=== PATIENT | male | born 1940 | race African-American/Black ===

== ENCOUNTER 2018-10-01 16:13 | Inpatient (IN) | payer OTHER ==
--- NOTE | 2018-10-01 16:59 | PDOC ---
Attending Attestation - [facility] HPI: 10/01/18 18:00 The patient is a 76 year old male, with a significant past medical history of stroke (1993 and 2004) with residual LLE weakness, colon CA with colostomy, HTN , HLD, diabetes, who presents to the emergency department s/p near syncope about an hour prior to arrival. 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 He denies any chest pain or SOB at the time, but reportedly started to lose consciousness and his coworkers assisted him to a seat. He denies falling. He denies head trauma. He states he is feeling better now, however, reports a mild heaviness to his right lower extremity which he notices only with ambulation. He denies any numbness, tingling or weakness. He denies any pain to the extremities. The patient denies chest pain, shortness of breath, headache and dizziness. The patient denies fever, chills, nausea, vomit, diarrhea and constipation. The patient denies dysuria, frequency, urgency and hematuria. Allergies: NKDA Documentation prepared by Pina Strickland, acting as nuclear medicine medical director for Chel Gautam DO - Physicial Exam PE: 10/01/18 18:03 Constitutional: Awake, alert, oriented. No acute distress. Head: Normocephalic. Atraumatic Eyes: PERRL. EOMI. Conjunctivae are not pale. ENT: Mucous membranes are moist and intact. Posterior pharynx without exudates or erythema. Uvula midline. Neck: Supple. Full ROM. No lymphadenopathy. Cardiovascular: Regular rate. Regular rhythm. S1, S2 regular. Distal pulses are 2+ and symmetric. Pulmonary/Chest: No evidence of respiratory distress. Clear to auscultation bilaterally No wheezing, rales or rhonchi. Abdominal: Soft and non-distended. There is no tenderness. No rebound, guarding or rigidity. No organomegaly. No palpable masses. Good bowel sounds. Back: No CVA tenderness. Musculoskeletal: No edema. No cyanosis. No clubbing. Full range of motion in all extremities. Nocalf tenderness. Radial/pedal pulses are intact and 2+ bilaterally Skin: Skin is warm and dry. No petechiae. No purpura. Neurological: Antalgic gait at baseline. Alert and oriented to person, place, and time. Cranial nerves II-XII are grossly intact. Normal speech. Strength is grossly symmetric with exception of slight decreased strength to left lower extremity which is residual from a prior CVA. No sensory deficits. Psychiatric: Good eye contact. Normal interaction, affect and behavior. <Pina Strickland - Last Filed: 10/01/18 18:00> - Resident Resident Name: Viktoriya Cortés - ED Attending Attestation I have performed the following: I have examined & evaluated the patient, The case was reviewed & discussed with the resident, I agree w/resident's findings & plan, Exceptions are as noted - Medical Decision Making 10/01/18 16:59 I, Dr. Chel Gautam, DO, attest that this document has been prepared under my direction and personally reviewed by me in its entirety. I further attest, that it accurately reflects all work, treatment, procedures and medical decision -making performed by me. 10/01/18 18:23 a/p: 77yo male with an episode of feeling lightheaded earlier and near syncope -currently asymptomatic -c/o R leg feeling heavy when ambulating, but baseline gait and muscle strength 5/5 RLE -4/5 LLE which is baseline from prior cva -no cp/sob -will send labs, head ct, ekg, cxr 10/01/18 20:04 pt with chronic changes to the brain trop negative near syncope and R leg heaviness no new focal neuro findings will place in obs for MRI brain and neuro eval no TPA given NIHSS of 1 (residual L leg weakness from prior cva) pt willing to stay for near syncope and R leg heaviness 10/01/18 20:15 resident discussed the case with Dr. Biswas who accepts pt to service <Chel Gautam - Last Filed: 10/01/18 20:15> Heart Score/ECG Review - ECG Intrepretation Comment:: 10/01/18 18:25 sinus at 63, q waves inferior leads that are age indeterminate, q waves septally that are age indeterminate, t wave flattening inferior and lateral leads <Chel Gautam - Last Filed: 10/01/18 20:15>
--- NOTE | 2018-10-01 17:14 | PDOC ---
History of Present Illness - General Chief Complaint: Lightheaded Stated Complaint: DIZZY Time Seen by Provider: 10/01/18 16:35 History Source: Patient Exam Limitations: No Limitations - History of Present Illness Initial Comments: 10/01/18 17:02 77 year old man with history of stroke (1993, 2004) w/ L leg deficit, colon CA w / colostomy (2002), HTN, HLD, DM who presents with episode of near syncope approx 1 hour before presentation with episode of near syncope that lasted for approx 5min. 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 He admits to diaphoresis at the time but denies chest pain, shortness of breath or nausea. The patient was slow to respond at this time and "woozy" but was still responsive. He become completely alert when EMS arrived and he denies any confusion. The witnesses deny any shaking, eye rolling back or signs of seizure activity. The patient reports that he ate and drank normally today. He tried to walk after EMS arrived but still felt dizzy. He complains of some R leg heaviness in the ED. PMHX: as in HPI PSHX: as in HPI Meds: meclizine, loratadine, lisinopril, naproxen, lancet Allergies: NKDA tPA Exclusion Checklist 0-3hr - Time Elapsed Date last known well: 10/01/18 Time last known well: 16:00 Elaspsed time: 9 Day(s) and 6 Hour(s) and 24 Minutes - Thrombolytic Therapy Candidate Is the patient eligible for Thrombolytic Therapy?: No - Exclusion Criteria 0-3hr SBP greater than 185 or DBP greater than 110mmHg despite tx: No Recent IC/spinal surgery,head trauma or stroke w/in last 3mo: No Hx of previous IC hemorrhage, IC neoplasm, AVM or aneurysm: Yes Active internal bleeding: No Blding diathesis(low plt ct, inc PTT,INR>1.7 or use of NOAC): No Symptoms suggest subarachnoid hemorrhage: No CT demonstrates multilobar infarct(>1/3 cerebral hemiphere): No Arterial puncture at noncompressible site in previous 7 days: No Blood glucose concentration less than 50mg/dL (2.7mmol/L): No - Relative Exclusion Criteria 0-3h Life expectancy <1yr/severe co-morbid illness/PROFESSOR OF SOCIAL WORK on admit: No : No Patient/family refused: No Rapid improvement: Yes Stroke severity too mild: Yes Recent acute AK (w/in previous 3 months): No Seizure at onset with postictal residual neuro impairments: No Major surgery or serious trauma w/in previous 14 days: No Recent GI or hemorrhage (w/in previous 21 days): No - Ineligibility reason(s) Reasons No tPA given: See reason(s) noted above NIH Stroke Scale - Last Known Well Date/Time & Onset Date Last Known Well: 10/01/18 Time Last Known Well: 16:00 - Initial Evaluation Level of consciousness: Alert Ask patient the month and their age: Answers both correctly Ask patient to open & close eyes; make fist and let go: Obeys both correctly Best gaze (horizontal eye movement): Normal Visual field testing: No visual field loss Facial paresis (Show teeth/raise eyebrows/close eyes tight): Normal symmetrical movement Motor Function: Left Arm: Normal Motor Function: Right Arm: Normal (extends arm 90 (or 45) degrees for 10 seconds without drift Motor Function: Left Leg: Normal (extends leg 30 degrees for 5 seconds without drift) Motor Function: Right Leg: Normal (extends leg 30 degrees for 5 seconds without drift) Limb Ataxia: No ataxia Sensory(Use pinprick test arms,legs,trunk,face/side to side): Normal Best language (Describe picture, name items, read sentences): No Aphasia Dysarthria (read several words): Normal articulation Extinction and Inattention: No abnormality - Total Score NIH Stroke Scale Score: 0 Past History - Past Medical History Allergies/Adverse Reactions: Allergies Allergy/AdvReac Type Severity Reaction Status Date / Time No Known Allergies Allergy Verified 10/01/18 16:32 Home Medications: Ambulatory Orders Aspirin [ASA -] 81 mg PO DAILY 10/01/18 Lisinopril 20 mg PO DAILY 10/01/18 Loratadine 10 mg PO DAILY 10/01/18 Meclizine HCl [Travel Sickness] 25 mg PO DAILY 10/01/18 Naproxen [Naprosyn -] 250 mg PO DAILY 10/01/18 Aspirin [ASA -] 81 mg PO DAILY #30 tab.chew 10/03/18 Atorvastatin Ca [Lipitor] 40 mg PO HS #30 tablet 10/03/18 CVA: Yes COPD: No HTN: Yes - Suicide/Smoking/Psychosocial Hx Smoking History: Never smoked Review of Systems - Review of Systems Able to Perform ROS?: Yes Is the patient limited Nigerien proficient: No Constitutional: No: Chills, Diaphoresis, Fever HEENTM: No: Blurred Vision, Tinnitus Respiratory: No: Cough, Orthopnea, Shortness of Breath Cardiac (ROS): Yes: See HPI, Lightheadedness. No: Chest Pain, Palpitations ABD/GI: No: Constipated, Diarrhea, Nausea, Vomiting : No: Burning, Dysuria, Hematuria Musculoskeletal: No: Muscle Pain Neurological: No: Headache, Numbness, Tingling *Physical Exam - Vital Signs Last Vital Signs Temp Pulse Resp BP Pulse Ox 97.4 F L 18 L 65 H 137/68 99 10/01/18 16:30 10/01/18 16:30 10/01/18 16:30 10/01/18 16:30 10/01/18 16:30 - Physical Exam Comments: 10/01/18 17:25 GENERAL: Awake, alert, and fully oriented, in no acute distress HEAD: No signs of trauma, normocephalic, atraumatic EYES: PERRLA, EOMI, sclera anicteric, conjunctiva clear ENT: oropharynx clear without exudates. Moist mucosa NECK: Normal ROM, supple LUNGS: No distress, speaks full sentences, slightly decreased breath sounds in all lobes, clear to auscultation bilaterally HEART: Regular rate and rhythm, normal S1 and S2, no murmurs, rubs or gallops, peripheral pulses normal and equal bilaterally. ABDOMEN: Soft, nontender, normoactive bowel sounds, + L sided colostomy bag, No guarding, no rebound. No masses EXTREMITIES : Normal inspection, Normal range of motion, no edema. No clubbing or cyanosis. NEUROLOGICAL: Cranial nerves II through XII grossly intact. Normal speech, baseline gait w/ L leg weakness, no focal sensorimotor deficits SKIN: Warm, Dry, normal turgor, no rashes or lesions noted Moderate Sedation - Procedure Monitoring Vital Signs: Procedure Monitoring Vital Signs Temperature 97.4 F L 10/01/18 16:30 Pulse Rate 18 L 10/01/18 16:30 Respiratory Rate 65 H 10/01/18 16:30 Blood Pressure 137/68 10/01/18 16:30 O2 Sat by Pulse Oximetry (%) 99 10/01/18 16:30 ED Treatment Course - LABORATORY CBC & Chemistry Diagram: 10/03/18 08:00 10/03/18 08:00 - RADIOLOGY Radiology Studies Ordered: Category Date Time Status CXRPORT [CHEST X-RAY PORTABLE*] [RAD] Stat Radiology 10/01/18 16:48 Ordered Medical Decision Making - Medical Decision Making 10/01/18 17:21 77 year old man with history of stroke (1993, 2004) w/ L leg deficit, colon CA w / colostomy (2002), HTN, HLD, DM who presents with episode of near syncope approx 1 hour before presentation with episode of near syncope that lasted for approx 5min. 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 He admits to diaphoresis at the time but denies chest pain, shortness of breath or nausea. The patient was slow to respond at this time and "woozy" but was still responsive. He become completely alert when EMS arrived and he denies any confusion. The witnesses deny any shaking, eye rolling back or signs of seizure activity. The patient reports that he ate and drank normally today. He tried to walk after EMS arrived but still felt dizzy. ED Course: Consider ACS vs arrythmia vs vasovagal syncope vs hypoglycemia vs infectious When ambulating patient complained of R leg heaviness, new from baseline, however on exam with equal strength bilaterally. cbc, cmp, ekg, trop, cxr, bgm, ua, ucx EKG: normal sinus rhythm HR 10/01/18 18:42 cbc, cmp, ua unremarkable. pending head CT and CXR 10/01/18 20:17 No acute findings on head CT and CXR Admit for MRI, repeat trop, observation and neuro and cards evaluation. Patient admitted for further workup and evaluation *DC/Admit/Observation/Transfer Diagnosis at time of Disposition: Near syncope, Right leg weakness - Discharge Dispostion Disposition: HOME Condition at time of disposition: Good Decision to Admit order: Yes - Prescriptions - Referrals - Patient Instructions - Post Discharge Activity
[2018-10-01 17:27] LABS: BASO % 0.8 % (0-2.0); EOS % 1.9 % (0-4.5); HEMOGLOBIN 13.1 GM/dL (11.7-16.9); LYMPH % 21.6 % (8-40); MCH 28.9 pg (25.7-33.7); MCHC 33.7 g/dl (32.0-35.9); MEAN CELL VOLUME 85.8 fl (80-96); MONO % 9.4 % (3.8-10.2); NEUT % 66.3 % (42.8-82.8); PLATELET COUNT 253 K/MM3 (134-434); RBC 4.54 M/mm3 (4.00-5.60); WHITE BLOOD COUNT 6.4 K/mm3 (4.0-10.0)
[2018-10-01 17:36] LABS: URINE APPEARANCE CLEAR; URINE BILIRUBIN NEGATIVE (<2.0 mg/dL); URINE COLOR YELLOW; URINE GLUCOSE (UA) NEGATIVE (NEGATIVE); URINE KETONE NEGATIVE (NEGATIVE); URINE LEUK ESTERASE NEGATIVE (NEGATIVE); URINE NITRITE NEGATIVE (NEGATIVE); URINE PROTEIN NEGATIVE (NEGATIVE)
[2018-10-01 18:07] LABS: ALBUMIN 4.1 g/dl (3.4-5.0); ALK PHOS 84 U/L (45-117); ANION GAP 9 MMOL/L (8-16); BILIRUBIN,TOTAL 0.2 mg/dL (0.2-1); BLOOD UREA NITROGEN 23 mg/dL (7-18); CALCIUM 8.9 mg/dL (8.5-10.1); CHLORIDE 106 mmol/L (98-107); CO2 24 mmol/L (21-32); CREATININE 1.3 mg/dL (0.55-1.3); GLUCOSE,RANDOM 127 mg/dL (74-106); POTASSIUM 4.7 mmol/L (3.5-5.1); SGOT/AST 21 U/L (15-37); SGPT/ALT 32 U/L (13-61); SODIUM 139 mmol/L (136-145)
[2018-10-02 01:58] VITALS: BMI 24.5
--- NOTE | 2018-10-02 09:17 | EKG ---
Test Reason : Blood Pressure : / mmHG Vent. Rate : 063 BPM Atrial Rate : 063 BPM P-R Int : 180 ms QRS Dur : 096 ms QT Int : 404 ms P-R-T Axes : 040 -24 -03 degrees QTc Int : 413 ms POOR DATA QUALITY, INTERPRETATION MAY BE ADVERSELY AFFECTED NORMAL SINUS RHYTHM NORMAL ECG WHEN COMPARED WITH ECG OF 01-DEC-2002 07:53, CRITERIA FOR INFERIOR INFARCT ARE NO LONGER PRESENT NONSPECIFIC T WAVE ABNORMALITY NOW EVIDENT IN ANTERIOR LEADS Confirmed by KASSANDRA DO, JORGE ([id number]) on 10/02/2018 9:16:36 AM Referred By: Confirmed By:JORGE CANNON MD
--- NOTE | 2018-10-02 09:37 | CON.NEURO ---
Consult - Alcohol/Substance Use Hx Alcohol Use: No - Smoking History Smoking history: Never smoked Have you smoked in the past 12 months: No If you are a former smoker, when did you quit?: 1985 Home Medications - Allergies Allergies/Adverse Reactions: Allergies Allergy/AdvReac Type Severity Reaction Status Date / Time No Known Allergies Allergy Verified 10/01/18 16:32 - Home Medications Home Medications: Ambulatory Orders Aspirin [ASA -] 81 mg PO DAILY 10/01/18 Lisinopril 20 mg PO DAILY 10/01/18 Loratadine 10 mg PO DAILY 10/01/18 Meclizine HCl [Travel Sickness] 25 mg PO DAILY 10/01/18 Naproxen [Naprosyn -] 250 mg PO DAILY 10/01/18 Physical Exam-Neuro Vital Signs: Vital Signs Temperature 98.2 F 10/02/18 06:00 Pulse Rate 62 10/02/18 06:00 Respiratory Rate 16 10/02/18 06:00 Blood Pressure 141/70 10/02/18 06:00 O2 Sat by Pulse Oximetry (%) 99 10/01/18 23:21 Labs: CBC, BMP 10/01/18 17:19 10/01/18 17:19 Assessment/Plan cc Syncopal episode HPI 77 year old male hsitory of stroke ( 1993 and 2004) with residual left sied wekaenss. He also have history of HTN,HLD,DM, Colostomy. 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 He almost passed out but never lost [place]. He denies any seizure like activity. He denies any new focal eurological symptoms. His nih score was 0 at admission as per records. Past Medical History DM,HTN, COLON CANCER, HLD Allergies/Adverse Reactions: Allergies Allergy/AdvReac Type Severity Reaction Status Date / Time No Known Allergies Allergy Verified 10/01/18 16:32 Home Medications: Ambulatory Orders Aspirin [ASA -] 81 mg PO DAILY 10/01/18 Lisinopril 20 mg PO DAILY 10/01/18 Loratadine 10 mg PO DAILY 10/01/18 Meclizine HCl [Travel Sickness] 25 mg PO DAILY 10/01/18 Naproxen [Naprosyn -] 250 mg PO DAILY 10/01/18 FH,ROS sh reviewed in chart NEUROLOGICAL EXAMIANTION Alert oriented x 3 mild left face asymmetry, eomi, pupils reactive there is no pronator drift and strength is normal in upper extremity there is mild left leg weakness ct hed unremarkable, old encephalomalacia identified Assessemnt 77 year old male history of stroke, dm, htn, hld and had let leg weakenss. came with presyncope, no LOC. There is no seizure like activity or suspician of stroke Plan- continue aspirin and statin - may follow up mri , though low suspician for stroke - may obtain carotid ultrasound for old stroke - SYNCOPE/Presyncope work up as per primary Thanking you so much Nathan Almonte MD
[2018-10-02] MEDS: LISINOPRIL 20 MG TABLET (FP) PO SCH (14:21)
[2018-10-02] MEDS: MECLIZINE HCL 25 MG TABLET (FP) PO SCH (14:21)
[2018-10-02] MEDS: ASPIRIN 81 MG CHEWABLE TABLETS PO SCH (14:21)
[2018-10-02] MEDS: HEPARIN NA (PORCINE) 5,000 UNITS/ML 1ML VIAL SQ SCH ×2 (14:22→21:06)
--- NOTE | 2018-10-02 16:18 | HP ---
Admitting History and Physical - Admission History of Present Illness: Pt is a 77 year old man with PMG significant for CVA w/ L leg deficit, colon CA w/ colostomy (2002), HTN, HLD, DM who presents with episode of near syncope approx 1 hour before presentation with episode of near syncope that lasted for approx 5min. 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 He admits to diaphoresis at the time but denies chest pain, shortness of breath or nausea. The patient was slow to respond at this time and "woozy" but was still responsive. He become completely alert when EMS arrived and he denies any confusion. The witnesses deny any shaking, eye rolling back or signs of seizure activity. The patient reports that he ate and drank normally today. He tried to walk after EMS arrived but still felt dizzy. He complains of some R leg heaviness in the ED. Limitations to Obtaining History: Other (syncope) - Past Medical History ACADEMIC SUPPORT COORDINATOR: Yes: CVA Cardiovascular: Yes: HTN, Hyperlipdemia Endocrine: Yes: Diabetes Mellitus - Smoking History Smoking history: Never smoked Have you smoked in the past 12 months: No If you are a former smoker, when did you quit?: 1985 - Alcohol/Substance Use Hx Alcohol Use: No Home Medications - Allergies Allergies/Adverse Reactions: Allergies Allergy/AdvReac Type Severity Reaction Status Date / Time No Known Allergies Allergy Verified 10/01/18 16:32 - Home Medications Home Medications: Ambulatory Orders Aspirin [ASA -] 81 mg PO DAILY 10/01/18 Lisinopril 20 mg PO DAILY 10/01/18 Loratadine 10 mg PO DAILY 10/01/18 Meclizine HCl [Travel Sickness] 25 mg PO DAILY 10/01/18 Naproxen [Naprosyn -] 250 mg PO DAILY 10/01/18 Aspirin [ASA -] 81 mg PO DAILY #30 tab.chew 10/03/18 Atorvastatin Ca [Lipitor] 40 mg PO HS #30 tablet 10/03/18 Family Disease History - Family Disease History Family History: Unremarkable Review of Systems - Review of Systems Constitutional: reports: No Symptoms Eyes: reports: No Symptoms HENT: reports: No Symptoms Neck: reports: No Symptoms Cardiovascular: reports: Shortness of Breath Respiratory: reports: No Symptoms Gastrointestinal: reports: No Symptoms Genitourinary: reports: No Symptoms Physical Examination Vital Signs: Vital Signs Temperature 98.1 F 10/02/18 15:28 Pulse Rate 73 10/02/18 15:28 Respiratory Rate 18 10/02/18 15:28 Blood Pressure 130/67 10/02/18 15:28 O2 Sat by Pulse Oximetry (%) 99 10/01/18 23:21 Constitutional: Yes: No Distress Eyes: Yes: WNL HENT: Yes: WNL Neck: Yes: WNL, Supple Cardiovascular: Yes: WNL, Regular Rate and Rhythm Respiratory: Yes: WNL, Regular, CTA Bilaterally Gastrointestinal: Yes: WNL, Normal Bowel Sounds, Soft Musculoskeletal: Yes: WNL Extremities: Yes: WNL Edema: No Neurological: Yes: WNL, Alert, Oriented ...Motor Strength: WNL Labs: CBC, BMP 10/01/18 17:19 10/01/18 17:19 Problem List - Problems (1) Near syncope Assessment/Plan: Serial cpk/troponin Check carotid doppler/echo Cardio/neuro consult Check MRI brain Code(s): R55 - SYNCOPE AND COLLAPSE (2) Hypertension Assessment/Plan: BP stable Cont to monitor Code(s): I10 - ESSENTIAL (PRIMARY) HYPERTENSION Qualifiers: Hypertension type: essential hypertension Qualified Code(s): I10 - Essential (primary) hypertension (3) Diabetes Code(s): E11.9 - TYPE 2 DIABETES MELLITUS WITHOUT COMPLICATIONS (4) H/O: stroke with residual effects Code(s): I69.30 - UNSPECIFIED SEQUELAE OF CEREBRAL INFARCTION
--- NOTE | 2018-10-02 17:09 | CON.CARD ---
Consult Consult Specialty:: Cardiology for Dr. Rae Referred by:: Dr. 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 He become completely alert when EMS arrived and he denies any confusion. The witnesses deny any shaking, eye rolling back or signs of seizure activity. The patient reports that he ate and drank normally today. He tried to walk after EMS arrived but still felt dizzy. PMHX: as in HPI PSHX: as in HPI Meds: meclizine, loratadine, lisinopril, naproxen, lancet Allergies: NKDA - History Source History Provided By: Patient Limitations to Obtaining History: No Limitations - Alcohol/Substance Use Hx Alcohol Use: No - Smoking History Smoking history: Never smoked Have you smoked in the past 12 months: No If you are a former smoker, when did you quit?: 1985 Home Medications - Allergies Allergies/Adverse Reactions: Allergies Allergy/AdvReac Type Severity Reaction Status Date / Time No Known Allergies Allergy Verified 10/01/18 16:32 - Home Medications Home Medications: Ambulatory Orders Aspirin [ASA -] 81 mg PO DAILY 10/01/18 Lisinopril 20 mg PO DAILY 10/01/18 Loratadine 10 mg PO DAILY 10/01/18 Meclizine HCl [Travel Sickness] 25 mg PO DAILY 10/01/18 Naproxen [Naprosyn -] 250 mg PO DAILY 10/01/18 Review of Systems - Review of Systems Neurological: reports: Dizziness, Pre-Existing Deficit Vital Signs: Vital Signs Temperature 98.1 F 10/02/18 15:28 Pulse Rate 73 10/02/18 15:28 Respiratory Rate 18 10/02/18 15:28 Blood Pressure 130/67 10/02/18 15:28 O2 Sat by Pulse Oximetry (%) 99 10/01/18 23:21 Constitutional: Yes: No Distress, Calm Neck: Yes: Supple Respiratory: Yes: Regular, CTA Bilaterally Gastrointestinal: Yes: Normal Bowel Sounds, Soft Cardiovascular: Yes: Regular Rate and Rhythm JVD: No Carotid Bruit: No Heart Sounds: Yes: S1, S2 Edema: No - Other Data Labs, Other Data: CBC, BMP 10/01/18 17:19 10/01/18 17:19 Troponin, BNP 10/01/18 10/01/18 10/02/18 17:19 20:22 11:35 Troponin I < 0.02 < 0.02 < 0.02 Troponin, BNP 10/01/18 10/01/18 10/02/18 17:19 20:22 11:35 Troponin I < 0.02 < 0.02 < 0.02 NSR @ 63 Imaging - Results Chest X-ray: Report Reviewed (NAD) Problem List - Problems (1) H/O: stroke with residual effects Code(s): I69.30 - UNSPECIFIED SEQUELAE OF CEREBRAL INFARCTION (2) Hypertension Code(s): I10 - ESSENTIAL (PRIMARY) HYPERTENSION Qualifiers: Hypertension type: essential hypertension Qualified Code(s): I10 - Essential (primary) hypertension (3) Near syncope Code(s): R55 - SYNCOPE AND COLLAPSE Assessment/Plan ct hed unremarkable, old encephalomalacia identified 1. Vasovagal near syncope with typical prodromal symptoms 2. Old stroke with left leg weakenss 3. Hypertension 4. Type 2 DM P:1 Continue ASA 81 qd, lisinopril 20 qd, statin 2. Addressed abortive maneuvers once prodromal sxs experienced 3. F/u brain MRI and carotid ultrasound results 4. Thank you for consultative opportunity
--- NOTE | 2018-10-02 17:37 | ECHO ---
Name: ARTUR FELIZ Exam:Adult Echocardiogram Study Date: 10/02/2018 02:56 PM Age: 77 yrs Reason For Study: CVA Height: 70 in Weight: 171 lb BSA: 2.0 m2 MMode/2D Measurements & Calculations IVSd: 0.94 cm Ao root diam: 3.3 cm LVIDd: 4.3 cm LA dimension: 2.8 cm LVIDs: 2.7 cm LVPWd: 0.70 cm EDV(Teich): 81.6 ml TAPSE: 2.4 cm ESV(Teich): 27.4 ml Doppler Measurements & Calculations MV E max ketan: 51.8 cm/sec Ao V2 max: 131.7 cm/sec MV A max ketan: 89.8 cm/sec Ao max P.9 mmHg MV E/A: 0.58 Ao V2 mean: 99.2 cm/sec MV dec time: 0.29 sec Ao mean P.5 mmHg Ao V2 VTI: 25.5 cm LV V1 max P.5 mmHg TR max ketan: 201.5 cm/sec LV V1 mean P.2 mmHg TR max P.5 mmHg LV V1 max: 106.6 cm/sec LV V1 mean: 68.2 cm/sec LV V1 VTI: 18.2 cm Med Peak E' Ketan: 7.7 cm/sec Med E/e': 6.7 Lat Peak E' Ketan: 7.5 cm/sec Lat E/e': 6.9 Left Ventricle The left ventricle is normal in size. The left ventricular ejection fraction is normal. Ejection Frac tion = 60-65%. The transmitral spectral Doppler flow pattern is suggestive of impaired LV relaxation. The le ft ventricular wall motion is normal. There is no thrombus. Right Ventricle The right ventricle is grossly normal size. The right ventricular systolic function is normal. Atria Normal left and right atrial size and function. Tricuspid Valve There is mild tricuspid regurgitation. Right ventricular systolic pressure is normal. Pulmonic Valve The pulmonic valve is not well visualized. Great Vessels The aortic root is normal size. Pericardium/Pleura There is no pericardial effusion. Interpretation Summary The left ventricle is normal in size. The left ventricular ejection fraction is normal. Ejection Fraction = 60-65%. The transmitral spectral Doppler flow pattern is suggestive of impaired LV relaxation. The left ventricular wall motion is normal. There is no thrombus. The right ventricle is grossly normal size. The right ventricular systolic function is normal. Normal left and right atrial size and function. There is mild tricuspid regurgitation. Right ventricular systolic pressure is normal. The aortic root is normal size. There is no pericardial effusion. The pulmonic valve is not well visualized. Salvatore Emmanuel MD 10/02/2018 05:37 PM
[2018-10-02] MEDS ORDERED: ATORVASTATIN CA 40 MG TABLET (FP) PO SCH (22:00)
[2018-10-03 09:06] LABS: BASO % 0.7 % (0-2.0); EOS % 3.8 % (0-4.5); HEMATOCRIT 39.1 % (35.4-49); HEMOGLOBIN 12.4 GM/dL (11.7-16.9); LYMPH % 38.3 % (8-40); MCH 27.5 pg (25.7-33.7); MCHC 31.7 g/dl (32.0-35.9); MEAN CELL VOLUME 86.9 fl (80-96); MEAN PLT VOLUME 8.1 fl (7.5-11.1); MONO % 13.3 % (3.8-10.2); NEUT % 43.9 % (42.8-82.8); PLATELET COUNT 223 K/MM3 (134-434); RDW 15.9 % (11.9-15.9); WHITE BLOOD COUNT 3.8 K/mm3 (4.0-10.0)
[2018-10-03] MEDS: LISINOPRIL 20 MG TABLET (FP) PO SCH (09:31)
[2018-10-03] MEDS: ASPIRIN 81 MG CHEWABLE TABLETS PO SCH (09:31)
[2018-10-03] MEDS: MECLIZINE HCL 25 MG TABLET (FP) PO SCH (09:31)
[2018-10-03] MEDS: HEPARIN NA (PORCINE) 5,000 UNITS/ML 1ML VIAL SQ SCH (09:31)
[2018-10-03 09:40] LABS: ALBUMIN 3.6 g/dl (3.4-5.0); ALK PHOS 72 U/L (45-117); ANION GAP 6 MMOL/L (8-16); BILIRUBIN,TOTAL 0.4 mg/dL (0.2-1); BLOOD UREA NITROGEN 18 mg/dL (7-18); CALCIUM 8.6 mg/dL (8.5-10.1); CHLORIDE 106 mmol/L (98-107); CO2 28 mmol/L (21-32); CREATININE 1.2 mg/dL (0.55-1.3); GLUCOSE,RANDOM 102 mg/dL (74-106); POTASSIUM 4.2 mmol/L (3.5-5.1); SGOT/AST 16 U/L (15-37); SGPT/ALT 28 U/L (13-61); SODIUM 139 mmol/L (136-145); TOT PROT 7.1 g/dl (6.4-8.2)
--- NOTE | 2018-10-03 13:45 | PN ---
Progress Note (short form) - Note Progress Note: 77 year old male hsitory of stroke ( 1993 and 2004) with residual left sied wekaenss. He also have history of HTN,HLD,DM, Colostomy. 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 He almost passed out but never lost [place]. He denies any seizure like activity. He denies any new focal eurological symptoms. His nih score was 0 at admission as per records. He came with presyncopal episode, and no more episode. mri ofbrain and carotid ultrasound unremarkable. NEUROLOGICAL EXAMIANTION Alert oriented x 3 mild left face asymmetry, eomi, pupils reactive there is no pronator drift and strength is normal in upper extremity there is mild left leg weakness ct hed unremarkable, old encephalomalacia identified mri of brain no acute infarct carotid ultrasound no acute findings Assessemnt 77 year old male history of stroke, dm, htn, hld and had let leg weakenss. came with presyncope, no LOC. no evidence of acute stroke or no carotid stenosis. Plan- continue aspirin and statin - Neuro point of view, patient can be discharged and follow up outpatient Thanking you so much Nathan Almonte MD
[2018-10-03 15:32] VITALS: BP 159/77; PULSE 70; TEMP 98.4
== END 2018-10-03 16:35 | disposition home or self-care (01) | DRG 312 ==
LOC: JER 16:13 → JERBED 20:10 → J5S 10-02 01:24 → OBSVTOIN 10-02 11:10
PROVIDERS: ADMIT Internal Medicine; ATTEND Internal Medicine
DX: R55 Syncope and collapse (principal); I69.354 Hemiplegia and hemiparesis following cerebral infarction affecting left non-dominant side; E11.9 Type 2 diabetes mellitus without complications; I10 Essential (primary) hypertension; E78.5 Hyperlipidemia, unspecified; Z90.49 Acquired absence of other specified parts of digestive tract; Z85.038 Personal history of other malignant neoplasm of large intestine; Z87.891 Personal history of nicotine dependence
CPT/HCPCS: 36415; 70450-TC; 70551-TC; 71045-TC-FY; 80053; 81003; 82550; 82553; 82962; 84484; 85025; 87086; 93005; 93010; 93306-TC; 93880-TC; 97116-GP; 97161-GP; 99284-25; G0378

== ENCOUNTER 2019-09-26 13:11 | Emergency (ER) | payer OTHER ==
[2019-09-26 13:26] VITALS: TEMP 98.7; BMI 26.6
[2019-09-26] MEDS ORDERED: SODIUM CHLORIDE 0.9% 500 ML INFUS.BAG IV ONE (15:32)
[2019-09-26] MEDS ORDERED: MECLIZINE HCL 25 MG TABLET (FP) PO ONE (15:58)
[2019-09-26 16:02] LABS: BASO % 0.8 % (0-2.0); EOS % 1.5 % (0-4.5); HEMATOCRIT 41.2 % (35.4-49); HEMOGLOBIN 13.1 GM/dL (11.7-16.9); LYMPH % 23.5 % (8-40); MCHC 31.8 g/dl (32.0-35.9); MEAN CELL VOLUME 87.9 fl (80-96); MEAN PLT VOLUME 8.5 fl (7.5-11.1); MONO % 10.5 % (3.8-10.2); NEUT % 63.7 % (42.8-82.8); PLATELET COUNT 219 K/MM3 (134-434); RBC 4.69 M/mm3 (4.00-5.60); RDW 15.5 % (11.9-15.9); WHITE BLOOD COUNT 6.5 K/mm3 (4.0-10.0)
--- NOTE | 2019-09-26 16:02 | PDOC ---
History of Present Illness - General Chief Complaint: Lightheaded Stated Complaint: DIZZINESS Time Seen by Provider: 09/26/19 15:06 - History of Present Illness Initial Comments: 09/26/19 23:40 78M PMH CVA w/ residual left sided deficits, HTN, HLD, NIDDM, Colon Ca s/p resection and colostomy presenting with vertiginous symptoms with a fall. Pt vomited once last night, felt off balance after, and subsequently sustained a fall in the bedroom. Pt remembers landing on side but does not entirely remember the event. Was able to pick himself up after an estimated 30 mins on the ground. Denies preceding auras of nausea, vomiting, cp/sob. Denies f/c, cp/ sob, abd pain, dysuria, frequency. Still endorsing symptoms w/ worsening when changing positions from supine to standing. Normal appetite. NKDA Denies tobacco, etoh, drugs Lives at home, ambulates w/o assist Past History - Past Medical History Allergies/Adverse Reactions: Allergies Allergy/AdvReac Type Severity Reaction Status Date / Time No Known Allergies Allergy Verified 09/26/19 13:16 Home Medications: Ambulatory Orders Aspirin [ASA -] 81 mg PO DAILY 10/01/18 Lisinopril 20 mg PO DAILY 10/01/18 Loratadine 10 mg PO DAILY 10/01/18 Meclizine HCl [Travel Sickness] 25 mg PO DAILY 10/01/18 Naproxen [Naprosyn -] 250 mg PO DAILY 10/01/18 Aspirin [ASA -] 81 mg PO DAILY #30 tab.chew 10/03/18 Atorvastatin Ca [Lipitor] 40 mg PO HS #30 tablet 10/03/18 Meclizine HCl 25 mg PO BID PRN #20 tablet 09/26/19 CVA: Yes COPD: No Diabetes: Yes HTN: Yes - Psycho Social/Smoking Cessation Hx Smoking History: Unknown if ever smoked Have you smoked in the past 12 months: No If you are a former smoker, when did you quit?: 1985 Hx Alcohol Use: No Drug/Substance Use Hx: No Review of Systems - Review of Systems Able to Perform ROS?: Yes Comments:: 09/26/19 23:40 CONSTITUTIONAL: Denies F / C HEENT: Endorses vertigo. Denies headache, changes in vision / hearing RESP: Denies SOB, cough CARD: Denies chest pain, palpitations GI: Denies V / D, abdominal pain, inability to tolerate PO : Denies dysuria, frequency SKIN: Denies rashes NEURO: Denies numbness, tingling, weakness MSK: Denies back pain *Physical Exam - Vital Signs Last Vital Signs Temp Pulse Resp BP Pulse Ox 98.7 F 100 H 16 132/67 99 09/26/19 13:15 09/26/19 13:15 09/26/19 13:15 09/26/19 13:15 09/26/19 13:15 - Physical Exam 09/26/19 23:40 GEN: Well appearing, NAD, comfortable. AAOx3 HEENT: NC/AT, CN II-XII grossly intact, EOMI, PERRLA. No facial asymmetry. Moist mucous membranes; . Normal voice. Supple neck, FROM, neg TTP midline. CV: S1/S2, RRR, no m/r/g LUNG: CTAB, no wheezes, crackles, rales, rhonchi. GI: soft, ndnt, +BS, no guarding, no rebound. Colostomy bag in place. EXTREMITIES: No obvious deformities of all extremities. SKIN: warm, dry, normal turgor PSYCH: normal mood and affect; pleasant; cooperative. NEURO: Moving all extremities well. FROM UE and LE b/l. 5/5 UE strength b/l. 5/ 5 RLE strength. 4/5 LLE strength (baseline per pt). Sensation symmetric and intact throughout. No ataxia on FTN. No pronator drift. No romberg. Ambulation deferred 2/2 symptoms. BACK: No obvious deformities, no step offs, no midline TTP. There is no pelvic instability. No signs of trauma. ED Treatment Course - LABORATORY CBC & Chemistry Diagram: 09/26/19 15:51 09/26/19 15:51 - ADDITIONAL ORDERS Additional order review: Laboratory Results 09/26/19 15:56 POC Glucometer 100 09/26/19 15:56 POC Glucometer 100 - RADIOLOGY Radiology Studies Ordered: Category Date Time Status CERVICAL SPINE CT W/O CONTR [CT] Stat CT Scan 09/26/19 15:[address] WITHOUT CONTRAST [CT] Stat CT Scan 09/26/19 15:31 Ordered CHEST X-RAY PORTABLE* [RAD] Stat Radiology 09/26/19 15:31 Completed Medical Decision Making - Medical Decision Making 09/26/19 16:02 78M PMH CVA w/ residual left sided deficits, HTN, HLD, NIDDM, Colon Ca s/p resection and colostomy presenting with vertiginous symptoms and a fall w/ possible syncope. Neurologically intact, atraumatic exam. DDx - syncope eval arrythmia, lytes abnormality, anemia, dehydration; possible peripheral vs central vertigo, dehydration. - CBC, CMP, Cardiac - UA - EKG - CXR - CT Head and neck - fluids, meclizine - tele-obs 09/26/19 16:37 no acute path on CXR 09/26/19 16:38 labs reviewed borderline MAY likely 2/2 dehydration; c/w fluids 09/26/19 18:43 Pt feeling much better s/p fluids and meclizine f/u CT DC home if CT neg 09/26/19 19:13 CT head and neck IOC neg for acute pathology DC w/ pcp f/u Discharge - Discharge Information Problems reviewed: Yes Clinical Impression/Diagnosis: Dizziness, Dehydration Condition: Stable Disposition: HOME - Additional Discharge Information Prescriptions: Meclizine HCl 25 mg PO BID PRN #20 tablet PRN Reason: dizziness - Follow up/Referral Referrals: Slick Garrido MD [Primary Care Provider] - - Patient Discharge Instructions Patient Printed Discharge Instructions: DI for Dizziness-Nonvertigo Additional Instructions: Stay hydrated and don't forget to eat meals. Continue your home medications as prescribed by your primary doctor. We sent a medication to [facility] pharmacy; please pick it up and take as prescribed ( up to twice a day as needed). Follow up with your primary care doctor in the next 1-2 days about this ED visit. Return to the Emergency Department if you continue to feel dizzy, fall again, have worsening symptoms, develop numbness, tingling, or weakness, or you have any concerns. - Post Discharge Activity
[2019-09-26] MEDS ORDERED: MECLIZINE HCL 12.5 MG TABLET ONE (16:28)
--- NOTE | 2019-09-26 16:28 | EKG ---
Test Reason : Blood Pressure : / mmHG Vent. Rate : 100 BPM Atrial Rate : 100 BPM P-R Int : 152 ms QRS Dur : 104 ms QT Int : 352 ms P-R-T Axes : 041 -26 076 degrees QTc Int : 454 ms SINUS RHYTHM WITH OCCASIONAL PREMATURE VENTRICULAR COMPLEXES OTHERWISE NORMAL ECG WHEN COMPARED WITH ECG OF 01-OCT-2018 16:31, PREMATURE VENTRICULAR COMPLEXES ARE NOW PRESENT VENT. RATE HAS INCREASED BY 37 BPM NON-SPECIFIC CHANGE IN ST SEGMENT IN LATERAL LEADS T WAVE INVERSION NO LONGER EVIDENT IN INFERIOR LEADS NONSPECIFIC T WAVE ABNORMALITY NO LONGER EVIDENT IN ANTERIOR LEADS NONSPECIFIC T WAVE ABNORMALITY NOW EVIDENT IN LATERAL LEADS Confirmed by MD CHANTELL, TIMO ([id number]) on 09/26/2019 4:28:13 PM Referred By: Confirmed By:TIMO ABDUL MD
[2019-09-26 16:34] LABS: ALBUMIN 3.9 g/dl (3.4-5.0); BILIRUBIN,TOTAL 0.2 mg/dL (0.2-1); BLOOD UREA NITROGEN 20.6 mg/dL (7-18); CREATININE 1.2 mg/dL (0.55-1.3); POTASSIUM 4.3 mmol/L (3.5-5.1); TOT PROT 7.5 g/dl (6.4-8.2)
[2019-09-26 16:50] LABS: PH,URINE 6.5 (5.0-8.0); URINE APPEARANCE CLEAR; URINE BILIRUBIN NEGATIVE (NEGATIVE); URINE COLOR YELLOW; URINE GLUCOSE (UA) NEGATIVE (NEGATIVE); URINE KETONE NEGATIVE (NEGATIVE); URINE LEUK ESTERASE NEGATIVE (NEGATIVE); URINE NITRITE NEGATIVE (NEGATIVE); URINE PROTEIN NEGATIVE (NEGATIVE)
--- NOTE | 2019-09-26 16:58 | PDOC ---
Attending Attestation - Resident Resident Name: Nazario Vail - ED Attending Attestation I have performed the following: I have examined & evaluated the patient, The case was reviewed & discussed with the resident, I agree w/resident's findings & plan, Exceptions are as noted - HPI HPI: 09/26/19 16:52 78y M hx of CVA (residual L sided deficit), CAD, HTN<, HL, NIDM, colon ca presents with complaint of feeling 1 day history of vertigo since last night after stnding up from bed, fell without syncope, Adamant he was to week o get up on his own. Pt hs had intermitent vertigo since then especially when standing up that resolves afer a few minutes. Denies any n/v, fever/chills, headache cough, cp, sob, palpitaions, dysarthria, diplopia, new focal weakness, numbness , tingling, neck pain. pt denies any head injury, LOC. States it took him abot 30 min to crawl over to hi bed so he can get up with the aid of his bed. GENERAL: The patient is awake, alert, and fully oriented, Nontoxic - in no acute distress. HEAD: Normocephalic, atraumatic. EYES: extraocular movements intact, sclera anicteric, conjunctiva clear. ENT: Normal voice, Moist mucous membranes. NECK: Normal range of motion, supple LUNGS: Breath sounds equal, clear to auscultation bilaterally. No wheezes, no rhonchi, no rales. HEART: Regular rate and rhythm, normal S1 and S2 without murmur, rub or gallop. ABDOMEN: Soft, nontender, No guarding, no rebound. No CVA tenderness EXTREMITIES: Normal range of motion, no edema. PSYCH: Normal mood, normal affect. SKIN: Warm, Dry, normal turgor, NEURO: Mental status: The patient is oriented x3. Cranial nerves: Cranial nerves II through XII are intact Motor: The upper extremities are 5 over 5 in all muscle groups. Mild ewakness of LLE. Negative pronator drift Sensation: Sensation is intact to light touch throughout. romberg negative Cerebellar: Kjnllu-ijhimv-ittu is normal in both upper extremities. rapid alternating movements are normal. Gait: Normal. Heel and toe walking are normal. Tandem gait is normal. Differential for the patient's symptoms includes possible peripheral vertigo, no signs suggestive of central vertigo due to intermittent intermittent symptoms lack of focal neurologic complaints. Also consider anemia, metabolic derangements, occult infections, arrhythmia. Patient's labs were reviewed The patient is still improved with meclizine Awaiting CT results if negative anticipate discharge with outpatient follow-up - Physicial Exam PE: 09/28/19 16:48 see above - Medical Decision Making pt feeling much better prior to discharge. was ambulatory with normal gait with minimal vertigo without any sypmtoms when she is at rest. neuro exam remains intact will dc with supportive care with pmd and neuro fu return precautions were discussed
[2019-09-26 19:34] VITALS: BP 153/65; PULSE 75
== END 2019-09-26 19:34 | disposition home or self-care (01) ==
LOC: JER 13:11
DX: E86.0 Dehydration (principal); R42 Dizziness and giddiness; W18.39XA Other fall on same level, initial encounter; Y93.89 Activity, other specified; Y92.032 Bedroom in apartment as the place of occurrence of the external cause; Y99.8 Other external cause status; I10 Essential (primary) hypertension; E78.5 Hyperlipidemia, unspecified; E11.9 Type 2 diabetes mellitus without complications; Z79.84 Long term (current) use of oral hypoglycemic drugs; I69.854 Hemiplegia and hemiparesis following other cerebrovascular disease affecting left non-dominant side; Z85.038 Personal history of other malignant neoplasm of large intestine; Z93.3 Colostomy status
CPT/HCPCS: 36415; 70450-TC; 71045-TC-FY; 72125-TC; 80053; 81003; 82550; 82962; 84484; 85025; 93005; 93010; 99284-25